=== PATIENT | female | born 1950 | race Caucasian/White ===

== ENCOUNTER → 2022-05-14 | Outpatient (CLI) | payer MEDICARE, OTHER ==
--- NOTE | 2022-05-14 16:34 | Diagnostic Imaging Report ---
INDICATION: Left knee pain. FINDINGS: 4 views. Standing views show zigk-yk-jrhw appearance in the medial compartment with marked hypertrophic changes. There is mild narrowing of the lateral compartment. The patellofemoral joint is in good alignment with considerable hypertrophic change. Trochlea appears normal. No cortical fractures are seen. No loose bodies are identified. IMPRESSION: Advanced arthritic changes noted throughout the knee. Dictated by: Dictated on workstation # [id number]
== END ==
LOC: ORTHO 10:44
PROVIDERS: ATTEND Orthopaedic Surgery
DX: M17.12 Unilateral primary osteoarthritis, left knee (principal)
CPT/HCPCS: 73564; G0463; 99213

== ENCOUNTER 2022-05-27 05:31 | Outpatient (CLI) | payer MEDICARE ==
[~2022-05-27] VITALS: Ht 172.7 cm; Wt 90.0 kg
[2022-05-30] MEDS ORDERED: LATA7.5D OP (12:04)
[2022-05-30] MEDS ORDERED: MAGN400C PO (12:04)
[2022-05-30] MEDS ORDERED: LISI1TAB46 PO (12:04)
[2022-05-30] MEDS ORDERED: GLIM2TAB4 PO (12:04)
[2022-05-30] MEDS ORDERED: MECO10005 PO (12:04)
[2022-05-30] MEDS ORDERED: AMLO-250 PO (12:04)
[2022-05-30] MEDS ORDERED: BIOT10005 PO (12:04)
[2022-05-30] MEDS ORDERED: OMEP20CA18 PO (12:04)
[2022-05-30] MEDS ORDERED: CALC1CAP5 PO (12:04)
[2022-05-30] MEDS ORDERED: METF-398 PO (12:04)
== END 2022-05-30 12:19 | disposition home or self-care (01) ==
LOC: PREOP 05:31
PROVIDERS: ATTEND Orthopaedic Surgery
DX: Z01.818 Encounter for other preprocedural examination (principal)

== ENCOUNTER 2022-06-03 05:56 | Day surgery (SDC) | payer MEDICARE ==
[2022-06-03] VITALS (12 sets, daily range): BP systolic 127–145; BP diastolic 56–72
[~2022-06-03] VITALS: Ht 172.7 cm; Wt 90.0 kg
[~2022-06-03 05:56] MED LIST: AMLO-250 PO; BIOT10005 PO; CALC1CAP5 PO; GLIM2TAB4 PO; LATA7.5D OP; LISI1TAB46 PO; MAGN400C PO; MECO10005 PO; METF-398 PO; OMEP20CA18 PO
[2022-06-03] MEDS ORDERED: CLINDAMYCIN 600 MG/50 ML IVPB 50 ML IV ONE (06:30)
[2022-06-03] MEDS: LACTATED RINGERS 1,000 ML IV PRN ×2 (06:33→08:10)
[2022-06-03] MEDS ORDERED: TRANEXAMIC ACID 3,000 MG/150 ML NS IRRIGATION IR ONE ×2 (06:45)
[2022-06-03] MEDS ORDERED: ONDANSETRON 4 MG/2 ML (SDV) Z0FRAN ONE (06:52)
[2022-06-03] MEDS ORDERED: GLYCOPYRROLATE 0.2 MG/ML (ROBINUL) 2 ML VIAL ONE (06:52)
[2022-06-03] MEDS ORDERED: ROCURONIUM 10 MG/ML 5 ML SYRINGE IV ONE ×2 (06:52→07:09)
[2022-06-03] MEDS ORDERED: fentaNYL INJ 100 MCG/2 ML AMP ONE (06:52)
[2022-06-03] MEDS ORDERED: LIDOCAINE PF 2% 5 ML (XYLOCAINE) VIAL ONE (06:52)
[2022-06-03] MEDS ORDERED: proPOfol 200 MG/20 ML (DIPRIVAN) VIAL IV ONE (06:52)
[2022-06-03] MEDS ORDERED: MIDAZOLAM 2 MG/2 ML (VERSED) VIAL ONE (07:14)
[2022-06-03] MEDS ORDERED: ROPIVACAINE 5MG/ML 30ML VIAL ONE (07:15)
--- NOTE | 2022-06-03 07:21 | Progress Note-Pre Operative ---
Pre-Operative Progress Note Date of Available H&P: May 14, 2022 Date H&P Reviewed: Jun 03, 2022 Time H&P Reviewed: 07:15 History & Physical: H&P Reviewed, Patient Examed, No changes noted Pre-Operative Diagnosis: Left Knee Primary Osteoarthritis ROBERTO REZA MD Jun 03, 2022 07:21
[2022-06-03] MEDS ORDERED: HYDROmorphone 2 MG/ML VIAL (DILAUDID) ONE (08:13)
[2022-06-03] MEDS ORDERED: NEOSTIGMINE (BLOXIVERZ ) 1 MG/1ML 10 ML VIAL ONE (09:40)
[2022-06-03] MEDS ORDERED: SEVOFLURANE (ULTANE) 15 ML INHAL SOLN ONE (09:45)
--- NOTE | 2022-06-03 09:58 | Operative Report - Ortho ---
Operative Report Surgeon (s)/Furnace Combination Analyst (s) Surgeon ROBERTO REZA MD Furnace Combination Analyst n/a Pre-Operative Diagnosis Left Knee Primary Osteoarthritis Post-Operative Diagnosis same Operative Report Date of Procedure: Jun 03, 2022 Name of Procedure Performed: Left Total Knee Arthroplasty Description & Findings After obtaining informed consent and marking the patient in the preoperative holding area, the patient did receive IV antibiotics. Patient was taken to the operating room and anesthesia was induced. Surgical timeout was taken. The left lower extremity was prepped and draped in the usual sterile fashion. Incision was made and carried down to fascia. Arthrotomy was performed on the medial side of the patella. Patella was retracted laterally and knee was flexed. Found to have circumferential osteophtye around the distal femur as well as exposed bone in the medial compartment. Hole was made in the distal femur for the intramedullary distal femoral cutting guide. Resection was made then the femur was sized as a 4. 4-in-1 block for a size [address]. Anterior cut was made and there was no notch. Posterior cut was made followed by the chamfers. Box cut was performed. Lug holes were drilled. Attention was turned to the tibial side, extramedullary tibial guide was put into place and aligned with the tibial crest. It was set to take 2 mm off of the affected lateral side. Drop deloris was used to confirm alignment. Resection was made and was parallel to the joint line. Tibial bone block was removed. Lamina hydraulic jack operator was put into place and the menisci and posterior osteophytes were removed. The knee was trialed with a size 4 femur and a size 4 tibia with an 11 mm poly trial. It was found to come out to full extension and flexed beyond 120 degrees. It was stable to varus and valgus stress throughout its range of motion. This was accepted. Knee was brought out into extension and the patella was measured at less than 20 mm of thickness. Osteophytes were removed from around the perimeter of the patella. Trial implants were removed. Tibial tray was pinned and punched. The cut bone surfaces were lavaged with pulsatile normal saline. Implants were opened and assembled on the back table. Cement was mixed. Cement was applied to the cut bone surface as well as the implant surface. A size 4 tibial component was impacted into placed and excess cement was removed using a Redkey. A size 4 femoral component was impacted into place and excess cement was removed using a Redkey. Tibial tray was lavaged with saline. An 11 mm thick polyethylene component was locked into placed and the locking mechanism was checked. Knee was brought into extension. The knee was irrigated with normal saline. Irrigation was removed and tranexamic acid was placed. Once the cement had set, the knee was once again trialed; found to come to full extension, flexed beyond 120 degrees, and was stable to varus and valgus stress. Further tranexamic acid was applied for hemostasis. Tourniquet was dropped and electrocautery was used for further hemostasis. Fascial layer was closed with #2 Stratafix. The subcutaneous layer was closed with 2-0 Vicryl. The skin was closed with jaylen. Wound was dressed with xeroform, 4x4s, ABD, webril, and SARA wrap. Patient tolerated the procedure well and was stable to the recovery room. Anesthesia Type General plus regional Estimated Blood Loss 150 mL Specimen(s) collected/removed None ROBERTO REZA MD Jun 03, 2022 09:58
[2022-06-03] MEDS ORDERED: MILK OF MAGNESIA 400 MG/5 ML 30 ML UDC PO PRN (10:00)
[2022-06-03] MEDS ORDERED: BISACODYL 5 MG (DULCOLAX) TABLET PO PRN (10:00)
[2022-06-03] MEDS ORDERED: ONDANSETRON 4 MG/2 ML (SDV) Z0FRAN IV PRN (10:00)
[2022-06-03] MEDS ORDERED: morphine INJ 10 MG/ML 1ML (SYR OR VIAL) ONE (10:14)
[2022-06-03] MEDS ORDERED: HYDROmorphone 2 MG/ML VIAL (DILAUDID) IV ONE (10:15)
[2022-06-03] MEDS ORDERED: ONDANSETRON 4 MG/2 ML (SDV) Z0FRAN IVP PRN (10:15)
[2022-06-03] MEDS ORDERED: morphine INJ 10 MG/ML 1ML (SYR OR VIAL) IVP ONE (10:15)
--- NOTE | 2022-06-03 11:02 | Diagnostic Imaging Report ---
CLINICAL INDICATION: Preop knee surgery. EXAM: X-ray of the left knee, AP and crosstable lateral views. COMPARISON: X-ray of the left knee dated 05/14/2022. FINDINGS: There are interval postop changes with placement of a left total knee arthroplasty with the components in good position. Anterior knee skin jaylen and a compressive device are seen anteriorly. There is air involving the left knee joint space and soft tissue. IMPRESSION: Left total knee arthroplasty with the components in good position. There is no unexpected radiodense foreign object. Dictated by: Dictated on workstation # [id number]
[2022-06-03] MEDS ORDERED: morphine INJ 4 MG/ML 1 ML (VIAL/SYRINGE) IVP PRN (12:00)
[2022-06-03] MEDS: NS IV 1000 ML 1,000 ML IV SCH ×2 (12:30→21:49)
[2022-06-03] MEDS: GLIMEPIRIDE 2 MG (AMARYL) TAB PO SCH ×2 (13:51→20:49)
[2022-06-03] MEDS: CLINDAMYCIN 600 MG/50 ML IVPB 50 ML IV SCH ×2 (13:51→21:49)
--- NOTE | 2022-06-03 14:20 | Physical Therapy Evaluation ---
PT Evaluation-General Medical Diagnosis Admission Date June 03, 2022 Medical Diagnosis: left TKR Onset Date: Jun 03, 2022 Therapy Diagnosis Therapy Diagnosis: impaired mobility/weakness Precautions Precautions/Isolations: Fall Prevention, Standard Precautions Weight Bear Status Right Lower Extremity: Right Full Weight Bearing Left Lower Extremity: Left Weight Bearing/Tolerated Referral Physician: Tommie Reason for Referral: Evaluation/Treatment Medical History Pertinent Medical History: Arthritis, DM, HTN Current History s/p elective left TKR Reviewed History: Yes Social History Home: Single Level Current Living Status: Alone Entry Into Home: Stairs With Railing PT Steps Into Home: 3 Prior Prior Level of Function SCALE: Activities may be completed with or without assistive devices. 2-Egnruxvuyr-apiaksm completes the activity by him/herself with no assistance from a helper. 5-Set-up or Clean-up Assistance-helper sets up or cleans up; patient completes activity. [place] assists only prior to or following the activity. 4-Supervision or Touching Assistance-helper provides verbal cues and/or touching/steadying and/or contact guard assistance as patient completes activity. Assistance may be provided throughout the activity or intermittently. 3-Partial/Moderate Assistance-helper does LESS THAN HALF the effort. [place] lifts, holds or supports trunk or limbs, but provides less than half the effort. 2-Substantial/Maximal Assistance-helper does MORE THAN HALF the effort. [place] lifts or holds trunk or limbs and provides more than half the effort. 9-Tkmcsrrgz-esdqud does ALL the effort. Patient does none of the effort to complete the activity. Or, the assistance of 2 or more helpers is required for the patient to complete the activity. If activity was not attempted, code reason: 7-Patient Refused. 9-Not Applicable-not attempted and the patient did not perform the activity before the current illness, exacerbation or injury. 10-Not Attempted due to Environmental Limitations-(lack of equipment, weather restraints, etc.). 88-Not Attempted due to Medical Conditions or Safety Concerns. Bed Mobility: 6 Transfers (B,C,W/C): 6 Gait: 6 Stairs: 6 Indoor Mobility (Ambulation): Independent Stairs: Independent Prior Devices Use: Walker (PRN) PT Evaluation-Current Subjective Patient agrees to PT. Pain Numeric Pain Scale: 5-Moderate Pain Location: Left Location Body Site: Knee Pain Description: Acute Objective Patient Orientation: Normal For Age Attachments: Lind Catheter, Polar Pack, IV ROM/Strength ROM Lower Extremities left knee flexion 70 degrees AROM/0 degrees extension right LE WFL Strength Lower Extremities left LE 3+/5 grossly/right LE 4+/5 grossly Integumentary/Posture Bowel Incontinence: No Bladder Incontinence: Lind Cath Posture slight trunk flexed posture Neuromuscular (Tone, Coordination, Reflexes) grossly intact Sensory Vision: Functional Hearing: Functional Transfers Sit to Lying (QC): 6 Lying to Sitting/Side of Bed(Q: 6 Sit to Stand (QC): 4 Gait Mode of Locomotion: Walk Anticipated Mode of Locomotion: Walk Walk 10 feet (QC): 4 Walk 50 ft with 2 Turns(QC): 88 Walk 150 ft (QC): 88 Distance: 10' Gait Assistive Device: FWW Comments/Gait Description slightly antalgic/functional gait sequence Balance Sitting Static: Normal Sitting Dynamic: Normal Standing Static: Normal Standing Dynamic: Normal Treatment CPM/PADS 0-60 degrees left LE in place with polar pack Assessment/Needs 72 y.o. female, will benefit from skilled PT to address functional strength and mobility to improve current LOF to safely return to home at maximum LOF. Rehab Potential: Fair PT Chcf Goals Chcf Goals PT Chcf Goals Time Frame: Jun 08, 2022 Roll Left & Right (QC): 6 Sit to Lying (QC): 6 Lying-Sitting on Side/Bed(QC): 6 Sit to Stand (QC): 6 Chair/Gjt-hs-Cgtqz Xfer(QC): 6 Toilet Transfer (QC): 6 Walk 10 feet (QC): 6 Walk 50ft with 2 Turns (QC): 6 Walk 150 ft (QC): 6 1 Step (curb) (QC): 6 4 Steps (QC): 6 PT Plan Problem List Problem List: Activity Tolerance, Functional Strength, Safety, Balance, Gait, Transfer, Bed Mobility, ROM Treatment/Plan Treatment Plan: Continue Plan of Care Treatment Plan: Bed Mobility, Education, Functional Activity Brien, Functional Strength, Gait, Safety, Therapeutic Exercise, Transfers Treatment Duration: Jun 08, 2022 Frequency: 11 times per week Estimated Hrs Per Day: .5 hour per day Patient and/or Family Agrees t: Yes Time/GCodes Time In: 1300 Time Out: 1338 Total Billed Treatment Time: 38 Total Billed Treatment 1 visit EVModC 20 min FA 18 min CPM/PADS KI,ANDREAS PT Jun 03, 2022 14:20
[2022-06-03] MEDS ORDERED: LISI-593 PO (16:01)
[2022-06-03] MEDS ORDERED: GLIM4TAB5 PO (16:01)
[2022-06-03] MEDS ORDERED: LATA2.5D19 OU (16:01)
[2022-06-03] MEDS ORDERED: MAGN250T35 PO (16:01)
[2022-06-03] MEDS: ASPIRIN E.C. 81 MG (ECOTRIN) TAB PO SCH (17:55)
[2022-06-03] MEDS: DOCUSATE SODIUM 100 MG (COLACE) CAP PO SCH (20:49)
[2022-06-03] MEDS: inSUlin ASPART (NovoLOG) 1 UNIT/0.01 ML (CHARGE PER UNIT) SC SCH (20:49)
[2022-06-03] MEDS: CELECOXIB 100 MG (CeleBREX) CAP PO SCH (20:49)
[2022-06-04] VITALS (7 sets, daily range): BP systolic 133–147; BP diastolic 60–73
[2022-06-04] MEDS: inSUlin ASPART (NovoLOG) 1 UNIT/0.01 ML (CHARGE PER UNIT) SC SCH ×4 (05:43→21:10)
[2022-06-04 06:10] LABS: HEMOGLOBIN 11.3 g/dL (11.5-16.0)
[2022-06-04] MEDS: ASPIRIN E.C. 81 MG (ECOTRIN) TAB PO SCH ×2 (08:22→16:54)
[2022-06-04] MEDS: NS IV 1000 ML 1,000 ML IV SCH (08:22)
[2022-06-04] MEDS: CELECOXIB 100 MG (CeleBREX) CAP PO SCH ×2 (08:22→20:28)
[2022-06-04] MEDS: DOCUSATE SODIUM 100 MG (COLACE) CAP PO SCH ×2 (08:23→20:28)
[2022-06-04] MEDS: GLIMEPIRIDE 2 MG (AMARYL) TAB PO SCH ×3 (08:23→20:28)
[2022-06-04] MEDS: PANTOPRAZOLE 20 MG TABLET (PROTONIX) PO SCH (08:23)
[2022-06-04] MEDS ORDERED: OMEPRAZOLE 20 MG (PriLOSEC) CAP NON-FORMULARY PO SCH (09:00)
--- NOTE | 2022-06-04 09:50 | Physical Therapy Daily Note ---
PT Daily Note-Current Subjective Patient agrees to PT. Pain Numeric Pain Scale: 8 Location: Left Location Body Site: Knee Pain Description: Acute Section J - Health Conditions 1. Rarely or not at all 2. Occasionally 3. Frequently 4. Almost constantly 8. Unable to answer Pain Effect on Sleep: 4 Pain Interference with Therapy: 3 Pain Interference w/Day-to-Day: 3 Mental Status Patient Orientation: Normal For Age Attachments: IV Transfers SCALE: Activities may be completed with or without assistive devices. 0-Cszjxxokax-crabulo completes the activity by him/herself with no assistance from a helper. 5-Set-up or Clean-up Assistance-helper sets up or cleans up; patient completes activity. [place] assists only prior to or following the activity. 4-Supervision or Touching Assistance-helper provides verbal cues and/or touching/steadying and/or contact guard assistance as patient completes activity. Assistance may be provided throughout the activity or intermittently. 3-Partial/Moderate Assistance-helper does LESS THAN HALF the effort. [place] lifts, holds or supports trunk or limbs, but provides less than half the effort. 2-Substantial/Maximal Assistance-helper does MORE THAN HALF the effort. [place] lifts or holds trunk or limbs and provides more than half the effort. 7-Osnarfoub-yrmbta does ALL the effort. Patient does none of the effort to complete the activity. Or, the assistance of 2 or more helpers is required for the patient to complete the activity. If activity was not attempted, code reason: 7-Patient Refused. 9-Not Applicable-not attempted and the patient did not perform the activity before the current illness, exacerbation or injury. 10-Not Attempted due to Environmental Limitations-(lack of equipment, weather restraints, etc.). 88-Not Attempted due to Medical Conditions or Safety Concerns. Lying to Sitting/Side of Bed(Q: 6 Sit to Stand (QC): 4 Chair/Ypp-de-Zqgfa Xfer(QC): 4 Toilet Transfer (QC): 4 Weight Bearing Right Lower Extremity: Right Full Weight Bearing Left Lower Extremity: Left Weight Bearing/Tolerated Gait Training Distance: 250' Walk 10 feet (QC): 4 Walk 50 ft with 2 Turns(QC): 4 Walk 150 ft (QC): 4 Gait Assistive Device: FWW flexed trunk and bilateral knee posture with VC's to correct/very slow reciprocal pattern Exercises Supine Ex: Ankle pumps, Quad Set, Heel Slides, Straight leg raise Supine Reps: 15 Seated Therapy Exercises: Long arc quads Seated Reps: 15 Assessment Patient requires time to complete all functional tasks. Patient's AROM 0-90 in recliner left knee. Patient to return to home with home health this week. Patient progressing with treatment plan. PT Longterm Goals Longterm Goals PT Registered Account Administrator Goals Time Frame: Jun 08, 2022 Roll Left & Right (QC): 6 Sit to Lying (QC): 6 Lying-Sitting on Side/Bed(QC): 6 Sit to Stand (QC): 6 Chair/Ero-wp-Uuoqc Xfer(QC): 6 Toilet Transfer (QC): 6 Walk 10 feet (QC): 6 Walk 50ft with 2 Turns (QC): 6 Walk 150 ft (QC): 6 1 Step (curb) (QC): 6 4 Steps (QC): 6 PT Plan Treatment/Plan Treatment Plan: Continue Plan of Care Treatment Plan: Bed Mobility, Education, Functional Activity Brien, Functional Strength, Gait, Safety, Therapeutic Exercise, Transfers Treatment Duration: Jun 08, 2022 Frequency: 11 times per week Estimated Hrs Per Day: .5 hour per day Patient and/or Family Agrees t: Yes Time/GCodes Time In: 802 Time Out: 845 Total Billed Treatment Time: 43 Total Billed Treatment 1 visit EX 20 min GT x 2 23 min ANDREAS EMERSON PT Jun 04, 2022 09:50
--- NOTE | 2022-06-04 10:08 | Anesthesia-General Post-Op ---
General Patient Condition Mental Status/LOC: Same as Preop Cardiovascular: Satisfactory Nausea/Vomiting: Absent Respiratory: Satisfactory Pain: Controlled Complications: Absent Post Op Complications Complications None Follow Up Care/Instructions Patient Instructions None needed. Anesthesia/Patient Condition Patient Condition Patient is doing well, no complaints, stable vital signs, no apparent adverse anesthesia problems. No complications reported per nursing. ROBERTO FIGUEROA CRNA Jun 04, 2022 10:08
--- NOTE | 2022-06-04 11:02 | Progress Note - Ortho ---
Progress Note Subjective Date of Exam 06/04/22 Chief Complaint POD #1 L TKA HPI/Events since last exam having difficulty with pain, concerned about discharge arrangements Review of Systems - Allergies: Coded Allergies: Penicillins (Unverified Allergy, Severe, Hives, 05/30/22) codeine (Unverified Allergy, Severe, Hives; PT rec'd hydromorphone, 06/03/22) adhesive tape (Unverified Allergy, Intermediate, Rash, 05/30/22) caffeine (Unverified Allergy, Unknown, 05/30/22) iodine (Unverified Allergy, Unknown, 05/30/22) Home Meds Reported Medications Magnesium Oxide (Magnesium Oxide) 250 Mg Tablet, 250 MG PO BID, TAB 06/03/22 Lisinopril/Hydrochlorothiazide (Zestoretic 20-25 mg Tablet) 20 Mg-25 Mg Tablet, 1 EACH PO DAILY, TAB 06/03/22 Latanoprost (Xalatan) 0.005 % Drops, 1 DROP OU HS, DROPS 06/03/22 Glimepiride (Glimepiride) 4 Mg Tablet, 2 MG PO TID, TAB TAKES OF A 4MG 06/03/22 Omeprazole (Omeprazole) 20 Mg Capsule.dr, 20 MG PO DAILY, CAP 05/30/22 Metformin HCl (Metformin HCl) 850 Mg Tablet, 850 MG PO TIDPC, TAB 05/30/22 Calcium Carbonate/Vitamin D3 (Calcium 600+D Softgel) 600 Mg Calcium-5 Mcg (200 Unit) Capsule, 1 EACH PO DAILY, CAP 05/30/22 Mecobalamin (B12 Active) 1,000 Mcg Tab.chew, 1000 MCG PO DAILY, TAB 05/30/22 Biotin (Biotin) 10,000 Mcg Capsule, 00953 MCG PO DAILY, CAP 05/30/22 Amlodipine Besylate (Amlodipine Besylate) 5 Mg Tablet, 5 MG PO DAILY, TAB 05/30/22 Discontinued Reported Medications Magnesium Oxide (Magnesium) 400 Mg Magnesium Capsule, 400 MG PO DAILY, CAP 05/30/22 Latanoprost/Pf (Latanoprost 0.005% Eye Drop) Unknown Strength Drops, OP, DROPS 05/30/22 Glimepiride (Glimepiride) 2 Mg Tablet, 2 MG PO TID, TAB 05/30/22 Objective Exam L Knee: Dressing C/D/I, +DF of ankle, no s/s of DVT Vital Signs Vital Signs Date Time Temp Pulse Resp B/P (MAP) Pulse Ox O2 Delivery O2 Flow Rate FiO2 06/04/22 09:00 Room Air 06/04/22 07:36 37.0 79 18 140/63 (88) 95 Room Air 06/04/22 04:26 36.7 91 20 147/70 (95) 93 Room Air 06/04/22 00:08 36.9 85 19 137/62 (87) 97 Room Air 06/03/22 21:03 Room Air 06/03/22 20:32 36.8 73 19 144/65 (91) 97 Room Air 06/03/22 16:08 37.0 87 18 133/63 (86) 95 Room Air 06/03/22 14:43 Room Air 06/03/22 11:47 35.9 82 16 143/65 (91) 96 Room Air 06/03/22 11:46 35.9 82 16 143/65 (91) 96 Room Air I & O 06/04/22 07:00 Intake Total 3550 ml Output Total 3800 ml Balance -250 ml Lab Results Laboratory Tests 06/03/22 16:18: Glucometer 236H 06/03/22 20:39: Glucometer 223H 06/04/22 05:20: Hemoglobin 11.3L, Hematocrit 34L 06/04/22 05:24: Glucometer 201H Microbiology 06/03/22 MRSA Screen - Final, Complete MRSA not isolated Imaging 2 postop views of the left knee dated 06/03/22 were reviewed from PACS and demonstrated components to be in good position without complication Assessment and Plan Assessment L Knee OA s/p L TKA Problem List L Knee OA s/p L TKA Plan PT/OT DVT Prophylaxis Home with home health versus some form of extended care Final Diagonsis L Knee OA s/p L TKA Level of the visit: Level 3 (postop global) ROBERTO REZA MD Jun 04, 2022 11:02
--- NOTE | 2022-06-04 13:33 | Physical Therapy Daily Note ---
PT Daily Note-Current Subjective Patient agrees to PT. Pain Numeric Pain Scale: 5-Moderate Pain Location: Left Location Body Site: Knee Pain Description: Acute Section J - Health Conditions 1. Rarely or not at all 2. Occasionally 3. Frequently 4. Almost constantly 8. Unable to answer Pain Effect on Sleep: 2 Pain Interference with Therapy: 1 Pain Interference w/Day-to-Day: 2 Mental Status Patient Orientation: Normal For Age Attachments: IV Transfers SCALE: Activities may be completed with or without assistive devices. 9-Wooowklbox-inoromh completes the activity by him/herself with no assistance from a helper. 5-Set-up or Clean-up Assistance-helper sets up or cleans up; patient completes activity. [place] assists only prior to or following the activity. 4-Supervision or Touching Assistance-helper provides verbal cues and/or t ouching/steadying and/or contact guard assistance as patient completes activity. Assistance may be provided throughout the activity or intermittently. 3-Partial/Moderate Assistance-helper does LESS THAN HALF the effort. [place] lifts, holds or supports trunk or limbs, but provides less than half the effort. 2-Substantial/Maximal Assistance-helper does MORE THAN HALF the effort. [place] lifts or holds trunk or limbs and provides more than half the effort. 7-Dpyuxnjfc-iefcgy does ALL the effort. Patient does none of the effort to complete the activity. Or, the assistance of 2 or more helpers is required for the patient to complete the activity. If activity was not attempted, code reason: 7-Patient Refused. 9-Not Applicable-not attempted and the patient did not perform the activity before the current illness, exacerbation or injury. 10-Not Attempted due to Environmental Limitations-(lack of equipment, weather restraints, etc.). 88-Not Attempted due to Medical Conditions or Safety Concerns. Sit to Stand (QC): 5 Weight Bearing Right Lower Extremity: Right Full Weight Bearing Left Lower Extremity: Left Weight Bearing/Tolerated Gait Training Distance: 250' Walk 10 feet (QC): 4 Walk 50 ft with 2 Turns(QC): 4 Walk 150 ft (QC): 4 Gait Assistive Device: FWW trunk and bilateral knee flexed posture with VC's for posture/reciprocal pattern Exercises Seated Therapy Exercises: Ankle pumps, Long arc quads Seated Reps: 15 Assessment Patient remains up in recliner for lunch. Patient progressing with treatment plan. Patient left knee flexion in chair is 90 degrees AROM. PT Half-Way Goals Ground Support Equipment Assembler Goals PT Ground Support Equipment Assembler Goals Time Frame: Jun 08, 2022 Roll Left & Right (QC): 6 Sit to Lying (QC): 6 Lying-Sitting on Side/Bed(QC): 6 Sit to Stand (QC): 6 Chair/Kln-wi-Gwivy Xfer(QC): 6 Toilet Transfer (QC): 6 Walk 10 feet (QC): 6 Walk 50ft with 2 Turns (QC): 6 Walk 150 ft (QC): 6 1 Step (curb) (QC): 6 4 Steps (QC): 6 PT Plan Treatment/Plan Treatment Plan: Continue Plan of Care Treatment Plan: Bed Mobility, Education, Functional Activity Brien, Functional Strength, Gait, Safety, Therapeutic Exercise, Transfers Treatment Duration: Jun 08, 2022 Frequency: 11 times per week Estimated Hrs Per Day: .5 hour per day Patient and/or Family Agrees t: Yes Time/GCodes Time In: 1240 Time Out: 1256 Total Billed Treatment Time: 16 Total Billed Treatment 1 visit FA 16 min ANDREAS EMERSON PT Jun 04, 2022 13:33
--- NOTE | 2022-06-04 13:39 | Occupational Therapy Eval ---
OT Evaluation-General/PLF Medical Diagnosis Admission Date 06/03/2022 Medical Diagnosis: left TKR Onset Date: Jun 03, 2022 Therapy Diagnosis Therapy Diagnosis: N/a Precautions Precautions/Isolations: Fall Prevention, Standard Precautions Referral Physician: Tommie Referral Reason: Evaluation/Treatment Medical History Pertinent Medical History: Arthritis, DM, HTN Current History Pt received a L TKR and is post op day 1. Pt lives alone in a 2-story home. She stated that she is able to stay on ground level and does not need to go up to the second floor. She has family close by in case she needs anything. Prior to surgery she was very active, working out 5 days a week and was independent with all ADLs/IADLs. She did not use any AD. Reviewed History: Yes Social History Home: Multilevel Current Living Status: Alone Entry Into Home: Stairs With Railing Steps Into Home: 3 ADL-Prior Level of Function SCALE: Activities may be completed with or without assistive devices. 3-Cpvampxzzf-pwaeacm completes the activity by him/herself with no assistance from a helper. 5-Set-up or Clean-up Assistance-helper sets up or cleans up; patient completes activity. [place] assists only prior to or following the activity. 4-Supervision or Touching Assistance-helper provides verbal cues and/or touching/steadying and/or contact guard assistance as patient completes activi ty. Assistance may be provided throughout the activity or intermittently. 3-Partial/Moderate Assistance-helper does LESS THAN HALF the effort. [place] lifts, holds or supports trunk or limbs, but provides less than half the effort. 2-Substantial/Maximal Assistance-helper does MORE THAN HALF the effort. [place] lifts or holds trunk or limbs and provides more than half the effort. 1-Nzmrmaeym-uymkie does ALL the effort. Patient does none of the effort to complete the activity. Or, the assistance of 2 or more helpers is required for the patient to complete the activity. If activity was not attempted, code reason: 7-Patient Refused. 9-Not Applicable-not attempted and the patient did not perform the activity before the current illness, exacerbation or injury. 10-Not Attempted due to Environmental Limitations-(lack of equipment, weather restraints, etc.). 88-Not Attempted due to Medical Conditions or Safety Concerns. Self Care: Independent Functional Cognition: Independent DME/Equipment: Bath Bench, Grab Bars, Tub/Shower Drive Self: Yes OT Current Status Subjective Pt sitting in bed upon arrival. She agreed to a therapy eval. Appearance Pt left lying in bed with all needs within reach. CPM was donned and turned on. Mental Status/Objective Patient Orientation: Person, Place, Time, Situation Attachments: IV Current Glasses/Contacts: Yes Hearing Aids: No Dentures/Partials: No Hand Dominance: Right Upper Extremity ROM WNL Upper Extremity Strength 5/5 at shoulders ADL-Treatment Oral Hygiene (QC): 6 (per clinical judgment) Shower/Bathe Self (QC): 5 (per clinical judgment; will improve quickly upon subsided pain) Lower Body Dressing (QC): 6 (per pt report) On/Off Footwear (QC): 6 Pt shows good seated and standing dynamic balance. Pt doffed/donned R sock with independence. Pt needed assist for L sock, but with decreased pain and better ROM, pt should reach independence with L LE quickly. Sit<>stand transfer: SBA. She shows no deficits and does not have any concerns with self-care tasks. She does not require skilled OT at this time. All concerns and questions answered in evaluation about home layout and knee precautions. Education OT Patient Education: Correct positioning, Modified ADL techniques, Progress toward Goal/Update tx plan, Purpose of tx/functional activities, Reviewed precautions, Rehab process, Safety issues Teaching Recipient: Patient Teaching Methods: Demonstration, Discussion Response to Teaching: Verbalize Understanding, Return Demonstration OT Glass Mechanic Goals [facility] Goals 1=Demonstrate adherence to instructed precautions during ADL tasks. 2=Patient will verbalize/demonstrate understanding of assistive devices/modifications for ADL. 3=Patient will improve strength/tolerance for activity to enable patient to perform ADL's. OT Education/Plan Problem List/Assessment Assessment: No Skilled OT Needs ID'd Discharge Recommendations Plan/Recommendations: Discontinue OT Therapy Discharge Recommendati: Home & Family Treatment Plan/Plan of Care Treatment,Training & Education: Yes Patient would benefit from OT for education, treatment and training to promote independence in ADL's, mobility, safety and/or upper extremity function for ADL's. Plan of Care: ADL Retraining, Functional Mobility Treatment Duration: Jun 04, 2022 Frequency: 1 time per week Estimated Hrs Per Day: .25 hour per day Agreement: Yes Rehab Potential: Fair Time/GCodes Start Time: 13:15 Stop Time: 13:31 Total Time Billed (hr/min): 16 Billed Treatment Time 1 visit Mervat Posada OT Jun 04, 2022 13:39
[2022-06-05 03:43] VITALS: BP 126/73
[2022-06-05] MEDS: inSUlin ASPART (NovoLOG) 1 UNIT/0.01 ML (CHARGE PER UNIT) SC SCH ×5 (05:25→20:45)
[2022-06-05 05:45] LABS: HEMOGLOBIN 10.2 g/dL (11.5-16.0)
[2022-06-05 07:40] VITALS: BP 138/74
[2022-06-05] MEDS: GLIMEPIRIDE 2 MG (AMARYL) TAB PO SCH ×3 (08:19→20:44)
[2022-06-05] MEDS: CELECOXIB 100 MG (CeleBREX) CAP PO SCH ×2 (08:19→20:44)
[2022-06-05] MEDS: DOCUSATE SODIUM 100 MG (COLACE) CAP PO SCH ×2 (08:19→20:44)
[2022-06-05] MEDS: PANTOPRAZOLE 20 MG TABLET (PROTONIX) PO SCH (08:19)
[2022-06-05] MEDS: ASPIRIN E.C. 81 MG (ECOTRIN) TAB PO SCH ×2 (08:19→17:15)
--- NOTE | 2022-06-05 08:53 | Physical Therapy Daily Note ---
PT Daily Note-Current Subjective Patient in recliner pre tx, agrees to PT, has 5/10 pain in left knee. Pain Section J - Health Conditions 1. Rarely or not at all 2. Occasionally 3. Frequently 4. Almost constantly 8. Unable to answer Pain Effect on Sleep: 2 Pain Interference with Therapy: 1 Pain Interference w/Day-to-Day: 2 Appearance Patient in recliner post tx with nurse call, phone, tray, all needs met. Mental Status Patient Orientation: Person, Place, Situation Transfers SCALE: Activities may be completed with or without assistive devices. 7-Swhwfhjstl-amcvusj completes the activity by him/herself with no assistance from a helper. 5-Set-up or Clean-up Assistance-helper sets up or cleans up; patient completes activity. [place] assists only prior to or following the activity. 4-Supervision or Touching Assistance-helper provides verbal cues and/or touching/steadying and/or contact guard assistance as patient completes acti vity. Assistance may be provided throughout the activity or intermittently. 3-Partial/Moderate Assistance-helper does LESS THAN HALF the effort. [place] lifts, holds or supports trunk or limbs, but provides less than half the effort. 2-Substantial/Maximal Assistance-helper does MORE THAN HALF the effort. [place] lifts or holds trunk or limbs and provides more than half the effort. 6-Vipturooz-invefv does ALL the effort. Patient does none of the effort to complete the activity. Or, the assistance of 2 or more helpers is required for the patient to complete the activity. If activity was not attempted, code reason: 7-Patient Refused. 9-Not Applicable-not attempted and the patient did not perform the activity before the current illness, exacerbation or injury. 10-Not Attempted due to Environmental Limitations-(lack of equipment, weather restraints, etc.). 88-Not Attempted due to Medical Conditions or Safety Concerns. Sit to Stand (QC): 4 Chair/Hdb-hm-Wlsht Xfer(QC): 4 SBA Weight Bearing Right Lower Extremity: Right Full Weight Bearing Left Lower Extremity: Left Weight Bearing/Tolerated Gait Training Distance: 250' Walk 10 feet (QC): 4 Walk 50 ft with 2 Turns(QC): 4 Walk 150 ft (QC): 4 Gait Persons Needed: 1 Gait Assistive Device: FWW SBA, slow, antalgic, decreased left knee flexion, fairly severe trendelenburg gait Exercises Supine Ex: Quad Set Supine Reps: 20 (done in recliner with legs elevated) Seated Therapy Exercises: Ankle pumps, Long arc quads Seated Reps: 20 Treatments transfers, ambulation, LE ROM Assessment Current Status: Fair Progress improving endurance PT Assisted Goals Assisted Goals PT Assisted Goals Time Frame: Jun 08, 2022 Roll Left & Right (QC): 6 Sit to Lying (QC): 6 Lying-Sitting on Side/Bed(QC): 6 Sit to Stand (QC): 6 Chair/Oqt-zb-Srmxp Xfer(QC): 6 Toilet Transfer (QC): 6 Walk 10 feet (QC): 6 Walk 50ft with 2 Turns (QC): 6 Walk 150 ft (QC): 6 1 Step (curb) (QC): 6 4 Steps (QC): 6 PT Plan Problem List Problem List: Activity Tolerance, Functional Strength, Safety, Balance, Gait, Transfer, Bed Mobility, ROM Treatment/Plan Treatment Plan: Continue Plan of Care Treatment Plan: Bed Mobility, Education, Functional Activity Brien, Functional Strength, Gait, Safety, Therapeutic Exercise, Transfers Treatment Duration: Jun 08, 2022 Frequency: 11 times per week Estimated Hrs Per Day: .5 hour per day Patient and/or Family Agrees t: Yes Safety Risks/Education Patient Education: Gait Training, Transfer Techniques, Correct Positioning, Safety Issues Teaching Recipient: Patient Teaching Methods: Demonstration, Discussion Response to Teaching: Reinforcement Needed Time/GCodes Time In: 818 Time Out: 830 Total Billed Treatment Time: 12 Total Billed Treatment 1 visit FA SHARLENE GTZ PT Jun 05, 2022 08:53
--- NOTE | 2022-06-05 09:05 | Progress Note - Ortho ---
Progress Note Subjective Date of Exam 06/05/22 Chief Complaint POD #2 L TKA HPI/Events since last exam continues to have quad soreness, making progress with therapy Review of Systems - Allergies: Coded Allergies: Penicillins (Unverified Allergy, Severe, Hives, 05/30/22) codeine (Unverified Allergy, Severe, Hives; PT rec'd hydromorphone, 06/03/22) adhesive tape (Unverified Allergy, Intermediate, Rash, 05/30/22) caffeine (Unverified Allergy, Unknown, 05/30/22) iodine (Unverified Allergy, Unknown, 05/30/22) Home Meds Reported Medications Magnesium Oxide (Magnesium Oxide) 250 Mg Tablet, 250 MG PO BID, TAB 06/03/22 Lisinopril/Hydrochlorothiazide (Zestoretic 20-25 mg Tablet) 20 Mg-25 Mg Tablet, 1 EACH PO DAILY, TAB 06/03/22 Latanoprost (Xalatan) 0.005 % Drops, 1 DROP OU HS, DROPS 06/03/22 Glimepiride (Glimepiride) 4 Mg Tablet, 2 MG PO TID, TAB TAKES OF A 4MG 06/03/22 Omeprazole (Omeprazole) 20 Mg Capsule.dr, 20 MG PO DAILY, CAP 05/30/22 Metformin HCl (Metformin HCl) 850 Mg Tablet, 850 MG PO TIDPC, TAB 05/30/22 Calcium Carbonate/Vitamin D3 (Calcium 600+D Softgel) 600 Mg Calcium-5 Mcg (200 Unit) Capsule, 1 EACH PO DAILY, CAP 05/30/22 Mecobalamin (B12 Active) 1,000 Mcg Tab.chew, 1000 MCG PO DAILY, TAB 05/30/22 Biotin (Biotin) 10,000 Mcg Capsule, 06027 MCG PO DAILY, CAP 05/30/22 Amlodipine Besylate (Amlodipine Besylate) 5 Mg Tablet, 5 MG PO DAILY, TAB 05/30/22 Discontinued Reported Medications Magnesium Oxide (Magnesium) 400 Mg Magnesium Capsule, 400 MG PO DAILY, CAP 05/30/22 Latanoprost/Pf (Latanoprost 0.005% Eye Drop) Unknown Strength Drops, OP, DROPS 05/30/22 Glimepiride (Glimepiride) 2 Mg Tablet, 2 MG PO TID, TAB 05/30/22 Objective Exam L Knee: Incision C/D/I, +DF of ankle, no s/s of DVT Vital Signs Vital Signs Date Time Temp Pulse Resp B/P (MAP) Pulse Ox O2 Delivery O2 Flow Rate FiO2 06/05/22 07:40 36.8 85 18 138/74 (95) 95 Room Air 06/05/22 03:43 36.6 86 18 126/73 (90) 96 Room Air 06/04/22 23:37 36.5 84 18 143/73 (96) 96 Room Air 06/04/22 21:06 Room Air 06/04/22 19:42 36.5 84 18 133/60 (84) 97 Room Air 06/04/22 15:30 36.3 85 18 140/65 (90) 96 Room Air 06/04/22 11:32 36.8 77 18 143/64 (90) 97 Room Air I & O 06/05/22 07:00 Intake Total 2900 ml Balance 2900 ml Lab Results Laboratory Tests 06/04/22 11:05: Glucometer 177H 06/04/22 16:13: Glucometer 220H 06/04/22 20:35: Glucometer 242H 06/05/22 05:12: Glucometer 166H 06/05/22 05:25: Hemoglobin 10.2L, Hematocrit 31L Microbiology 06/03/22 MRSA Screen - Final, Complete MRSA not isolated Assessment and Plan Assessment Left Knee OA s/p L TKA Problem List Left Knee OA s/p L TKA Plan PT/OT DVT Prophylaxis Home with Home Health Tomorrow Final Diagonsis Left Knee OA s/p L TKA Level of the visit: Level 3 (postop global) ROBERTO REZA MD Jun 05, 2022 09:05
[2022-06-05 11:09] VITALS: BP 133/73
--- NOTE | 2022-06-05 14:10 | Physical Therapy Daily Note ---
PT Daily Note-Current Subjective Patient in recliner pre tx, agrees to PT, has 5/10 pain in left knee. Pain Section J - Health Conditions 1. Rarely or not at all 2. Occasionally 3. Frequently 4. Almost constantly 8. Unable to answer Pain Effect on Sleep: 2 Pain Interference with Therapy: 1 Pain Interference w/Day-to-Day: 2 Appearance Patient in recliner post tx with nurse call, phone, tray, all needs met. Mental Status Patient Orientation: Person, Place, Situation Transfers SCALE: Activities may be completed with or without assistive devices. 2-Qcgsdjmyvp-lwkfcqx completes the activity by him/herself with no assistance from a helper. 5-Set-up or Clean-up Assistance-helper sets up or cleans up; patient completes activity. [place] assists only prior to or following the activity. 4-Supervision or Touching Assistance-helper provides verbal cues and/or touching/steadying and/or contact guard assistance as patient completes acti vity. Assistance may be provided throughout the activity or intermittently. 3-Partial/Moderate Assistance-helper does LESS THAN HALF the effort. [place] lifts, holds or supports trunk or limbs, but provides less than half the effort. 2-Substantial/Maximal Assistance-helper does MORE THAN HALF the effort. [place] lifts or holds trunk or limbs and provides more than half the effort. 8-Cfqanpcvv-gjrrbn does ALL the effort. Patient does none of the effort to complete the activity. Or, the assistance of 2 or more helpers is required for the patient to complete the activity. If activity was not attempted, code reason: 7-Patient Refused. 9-Not Applicable-not attempted and the patient did not perform the activity before the current illness, exacerbation or injury. 10-Not Attempted due to Environmental Limitations-(lack of equipment, weather restraints, etc.). 88-Not Attempted due to Medical Conditions or Safety Concerns. Sit to Stand (QC): 4 Chair/Fwp-us-Lomcp Xfer(QC): 4 SBA Weight Bearing Right Lower Extremity: Right Full Weight Bearing Left Lower Extremity: Left Weight Bearing/Tolerated Gait Training Distance: 200' Walk 10 feet (QC): 4 Walk 50 ft with 2 Turns(QC): 4 Walk 150 ft (QC): 4 Gait Persons Needed: 1 Gait Assistive Device: FWW SBA, slow, antalgic, has a fairly severe trendelenburg gait on the left side Stair Training Stair Training: Handrails/: 2 handrails #of Steps: 4 1 Step (curb) (QC): 4 4 Steps (QC): 4 Stairs: Pattern: Step to CGA, cues for foot placement Treatments transfers, ambulation, stair training Assessment Current Status: Fair Progress improving general mobility PT Call Center Associate Goals Call Center Associate Goals PT Call Center Associate Goals Time Frame: Jun 08, 2022 Roll Left & Right (QC): 6 Sit to Lying (QC): 6 Lying-Sitting on Side/Bed(QC): 6 Sit to Stand (QC): 6 Chair/Zid-yf-Dojmc Xfer(QC): 6 Toilet Transfer (QC): 6 Walk 10 feet (QC): 6 Walk 50ft with 2 Turns (QC): 6 Walk 150 ft (QC): 6 1 Step (curb) (QC): 6 4 Steps (QC): 6 PT Plan Problem List Problem List: Activity Tolerance, Functional Strength, Safety, Balance, Gait, Transfer, Bed Mobility, ROM Treatment/Plan Treatment Plan: Continue Plan of Care Treatment Plan: Bed Mobility, Education, Functional Activity Brien, Functional Strength, Gait, Safety, Therapeutic Exercise, Transfers Treatment Duration: Jun 08, 2022 Frequency: 11 times per week Estimated Hrs Per Day: .5 hour per day Patient and/or Family Agrees t: Yes Safety Risks/Education Patient Education: Gait Training, Transfer Techniques, Steps, Correct Positioning, Safety Issues Teaching Recipient: Patient Teaching Methods: Demonstration, Discussion Response to Teaching: Reinforcement Needed Time/GCodes Time In: 1324 Time Out: 1335 Total Billed Treatment Time: 11 Total Billed Treatment 1 visit FA SHARLENE CASTORENA PT Jun 05, 2022 14:10
[2022-06-05 15:50] VITALS: BP 122/57
[2022-06-05 19:22] VITALS: BP 118/56
[2022-06-05 23:31] VITALS: BP 122/72
[2022-06-06 03:34] VITALS: BP 124/73
[2022-06-06] MEDS: inSUlin ASPART (NovoLOG) 1 UNIT/0.01 ML (CHARGE PER UNIT) SC SCH ×2 (05:45→11:04)
[2022-06-06 07:34] VITALS: BP 145/63
[2022-06-06] MEDS ORDERED: OXC5T PO (08:15)
[2022-06-06] MEDS ORDERED: ASPI-1238 PO (08:15)
--- NOTE | 2022-06-06 08:19 | Discharge Summary ---
Discharge Summary Hospital Course Hospital Course Date of Admission: 06/03/22 Admission Diagnosis : Left Knee Primary Osteoarthritis Family Physician/Provider: Date of Discharge: 06/06/22 Discharge Diagnosis: [Left Knee Primary Osteoarthritis s/p Left Total Knee Arthroplasty ] Hospital Course: [ Admitted on 06/03/22 and went to the operating room for left TKA. Tolerated the procedure well and was transferred to the regular floor. On the day of surgery, she was started on mechnical DVT prophylaxis and began in room therapy. On POD #1, she began chemical DVT prophylaxis and made progress with ambulation. Pain was controlled with mostly oral medication. On POD #2, she was progressing well with therapy. Pain was controlled with oral medication and she was tolerating a regular diet. Home health therapy arrangements had been made. On POD #3, she was ready for discharge home with home health. ] Labs and Pending Lab Test: Laboratory Tests 06/05/22 15:12: Glucometer 219H 06/05/ 20:16: Glucometer 214H 06/06/22 05:28: Glucometer 159H Microbiology 06/03/22 MRSA Screen - Final, Complete MRSA not isolated Home Meds Active Aspirin EC (Aspirin) 81 Mg Tablet.dr 81 Mg PO BID WITH MEALS 14 Days Reported Magnesium Oxide 250 Mg Tablet 250 Mg PO BID Zestoretic 20-25 mg Tablet (Lisinopril/Hydrochlorothiazide) 20 Mg-25 Mg Tablet 1 Each PO DAILY Xalatan (Latanoprost) 0.005 % Drops 1 Drop OU HS Glimepiride 4 Mg Tablet 2 Mg PO TID TAKES OF A 4MG Omeprazole 20 Mg Capsule. 20 Mg PO DAILY Metformin HCl 850 Mg Tablet 850 Mg PO TIDPC Calcium 600+D Softgel (Calcium Carbonate/Vitamin D3) 600 Mg Calcium-5 Mcg (200 Unit) Capsule 1 Each PO DAILY B12 Active (Mecobalamin) 1,000 Mcg Tab.chew 1,000 Mcg PO DAILY Biotin 10,000 Mcg Capsule 10,000 Mcg PO DAILY Amlodipine Besylate 5 Mg Tablet 5 Mg PO DAILY Assessment/Pt Instructions Follow up in ~[address] Reilly. Continue to WBAT with walker. Dry dressing daily to incision site. Discharge Physical Examination Vital Signs Vital Signs Date Time Temp Pulse Resp B/P (MAP) Pulse Ox O2 Delivery O2 Flow Rate FiO2 06/06/22 07:34 36.6 80 18 145/63 (90) 96 Room Air 06/03/22 10:35 2.00 Extremity: Other (Left Knee: Incision C/D/I, +DF of ankle, no s/s of DVT) Allergies: Coded Allergies: Penicillins (Unverified Allergy, Severe, Hives, 05/30/22) codeine (Unverified Allergy, Severe, Hives; PT rec'd hydromorphone, 06/03/22) adhesive tape (Unverified Allergy, Intermediate, Rash, 05/30/22) caffeine (Unverified Allergy, Unknown, 05/30/22) iodine (Unverified Allergy, Unknown, 05/30/22) Discharge Summary Date of Admission Date of Discharge ROBERTO REILLY MD Jun 06, 2022 08:18
--- NOTE | 2022-06-06 08:20 | D/C HH Face to Face Order ---
D/C Face to Face Orders Instructions for Patient Via [facility] [place] [facility], Patient Instructions/FollowUp: Continue to WBAT with walker. Dry dressing daily to incision site. F/U in [address] Reilly Physician to follow Patient: Thad Reilly Discharge Diet for Home: ADA Diet Patient Data-Allergies,Ht & Wt Patient Allergies: Coded Allergies: Penicillins (Unverified Allergy, Severe, Hives, 05/30/22) codeine (Unverified Allergy, Severe, Hives; PT rec'd hydromorphone, 06/03/22) adhesive tape (Unverified Allergy, Intermediate, Rash, 05/30/22) caffeine (Unverified Allergy, Unknown, 05/30/22) iodine (Unverified Allergy, Unknown, 05/30/22) Home Health Need/Face to Face Date of Face to Face: Jun 06, 2022 Clinical Findings: Muscle weakness, Pain with ambulation, Unsteady gait I have seen Pt pvmz-qi-cxxq: Yes Discharged To: Home Diagnosis/Conditions: Left Knee Primary Osteoarthritis s/p L TKA Patient is Homebound due to: Muscle weakness, Pain w/ambulation Homebound Status Due to the above stated illness, injury or surgical procedure (medical condition or diagnosis) and associated clinical findings, the patient is homebound because of his/her inability to leave home except with aid of a supportive device and/or person AND leaving the home requires a considerable and taxing effort or is medically contraindicated. Pt req the following assistanc: Walker Home Health Nursing Orders Home Health Services Order: Physical Therapy-Evaluate & Treat Home Health Infusion Therapy Line Start Date: Jun 03, 2022 Therapy Orders Therapy Orders: Physical Therapy Therapy Specific Orders: Gait training, Increase strength/endurance, Restore ROM Certify Stmt I certify that this patient is under my care and that I, a nurse practitioner or a physician; a health care legal assistant working with me, had a face to face encounter that - meets the physician face to face encounter requirements with this patient as monique ed. THAD REILLY MD Jun 06, 2022 08:19
[2022-06-06] MEDS: ASPIRIN E.C. 81 MG (ECOTRIN) TAB PO SCH (09:04)
[2022-06-06] MEDS: PANTOPRAZOLE 20 MG TABLET (PROTONIX) PO SCH (09:04)
[2022-06-06] MEDS: GLIMEPIRIDE 2 MG (AMARYL) TAB PO SCH (09:04)
[2022-06-06] MEDS: DOCUSATE SODIUM 100 MG (COLACE) CAP PO SCH (09:04)
[2022-06-06] MEDS: CELECOXIB 100 MG (CeleBREX) CAP PO SCH (09:04)
--- NOTE | 2022-06-06 10:08 | Physical Therapy Daily Note ---
PT Daily Note-Current Subjective Patient report she slept better last night and will go home today. Pain Section J - Health Conditions 1. Rarely or not at all 2. Occasionally 3. Frequently 4. Almost constantly 8. Unable to answer Pain Effect on Sleep: 1 Pain Interference with Therapy: 1 Pain Interference w/Day-to-Day: 1 Transfers SCALE: Activities may be completed with or without assistive devices. 3-Qmkwzytctx-emwslbu completes the activity by him/herself with no assistance from a helper. 5-Set-up or Clean-up Assistance-helper sets up or cleans up; patient completes activity. [place] assists only prior to or following the activity. 4-Supervision or Touching Assistance-helper provides verbal cues and/or touching/steadying and/or contact guard assistance as patient completes activity. Assistance may be provided throughout the activity or intermittently. 3-Partial/Moderate Assistance-helper does LESS THAN HALF the effort. [place] lifts, holds or supports trunk or limbs, but provides less than half the effort. 2-Substantial/Maximal Assistance-helper does MORE THAN HALF the effort. [place] lifts or holds trunk or limbs and provides more than half the effort. 9-Mvfswccwd-psshxp does ALL the effort. Patient does none of the effort to complete the activity. Or, the assistance of 2 or more helpers is required for the patient to complete the activity. If activity was not attempted, code reason: 7-Patient Refused. 9-Not Applicable-not attempted and the patient did not perform the activity before the current illness, exacerbation or injury. 10-Not Attempted due to Environmental Limitations-(lack of equipment, weather restraints, etc.). 88-Not Attempted due to Medical Conditions or Safety Concerns. Sit to Stand (QC): 6 Weight Bearing Right Lower Extremity: Right Full Weight Bearing Left Lower Extremity: Left Weight Bearing/Tolerated Gait Training Distance: 250' Walk 10 feet (QC): 5 Walk 50 ft with 2 Turns(QC): 5 Walk 150 ft (QC): 5 Gait Assistive Device: FWW trunk and bilateral knee flexed posture Exercises Seated Therapy Exercises: Ankle pumps, Long arc quads Seated Reps: 15 Assessment Patient to dismiss to home with home health on this date. Patient progressing with treatment plan. PT Concrete Journeyman Goals Nursing Home Goals PT Nursing Home Goals Time Frame: Jun 08, 2022 Roll Left & Right (QC): 6 Sit to Lying (QC): 6 Lying-Sitting on Side/Bed(QC): 6 Sit to Stand (QC): 6 Chair/Tod-qu-Pxrwj Xfer(QC): 6 Toilet Transfer (QC): 6 Walk 10 feet (QC): 6 Walk 50ft with 2 Turns (QC): 6 Walk 150 ft (QC): 6 1 Step (curb) (QC): 6 4 Steps (QC): 6 PT Plan Treatment/Plan Treatment Plan: Discontinue PT Treatment Plan: Bed Mobility, Education, Functional Activity Brien, Functional Strength, Gait, Safety, Therapeutic Exercise, Transfers Treatment Duration: Jun 08, 2022 Frequency: 11 times per week Estimated Hrs Per Day: .5 hour per day Patient and/or Family Agrees t: Yes Time/GCodes Time In: 807 Time Out: 815 Total Billed Treatment Time: 8 Total Billed Treatment 1 visit FA 8 min ANDREAS EMERSON PT Jun 06, 2022 10:08
[2022-06-06 11:34] VITALS: BP 133/60
[2022-06-06 12:33] VITALS: BP 133/60
== END 2022-06-06 12:20 | disposition home or self-care (01) ==
LOC: SDC 05:56 → EDSTATUS 07:30 → 4TH 10:55 → SDC 06-06 12:20
PROVIDERS: ATTEND Orthopaedic Surgery
DX: M17.12 Unilateral primary osteoarthritis, left knee (principal); Z87.891 Personal history of nicotine dependence
CPT/HCPCS: 27447; 73560; 82947 ×3; 87081; 94664; 97110; 97116; 97162; 97165; 97530 ×3; 97799; C1713 ×2; C1776 ×3

== ENCOUNTER → 2022-07-23 | Outpatient (CLI) | payer MEDICARE ==
[~2022-07-23] MED LIST changes: +ASPI-1238 PO; +GLIM4TAB5 PO; +LATA2.5D19 OU; +LISI-593 PO; +MAGN250T35 PO; +OXC5T PO
--- NOTE | 2022-07-23 15:09 | Diagnostic Imaging Report ---
INDICATION: Right hip pain TECHNIQUE: 2 views of the right hip. CORRELATION STUDY: None FINDINGS: Images of the hip demonstrate no evidence for acute fracture. Alignment is anatomic. The femoral head acetabular relationship is unremarkable. The bony trabecular pattern is intact. IMPRESSION: 1. Negative for acute bony abnormality of the right hip. Dictated by: Dictated on workstation # [id number]
--- NOTE | 2022-07-23 20:33 | Diagnostic Imaging Report ---
INDICATION: PAIN TECHNIQUE: 2 views of the left knee CORRELATION STUDY: 06/03/2022 FINDINGS: Post knee arthroplasty hardware. Hardware intact. Alignment anatomic. No acute bony abnormality. Skin jaylen have been removed. Soft tissue edema and effusion present. IMPRESSION: 1. Satisfactory postoperative left knee arthroplasty. Some residual edema is present. Dictated by: Dictated on workstation # [id number]
== END ==
LOC: ORTHO 10:52
PROVIDERS: ATTEND Orthopaedic Surgery
DX: M25.562 Pain in left knee (principal); M25.552 Pain in left hip; Z96.652 Presence of left artificial knee joint
CPT/HCPCS: 73502; 73560

== ENCOUNTER → 2023-06-04 | Outpatient (CLI) | payer MEDICARE ==
--- NOTE | 2023-06-04 12:47 | Diagnostic Imaging Report ---
EXAMINATION: Left knee radiographs, 2 views. COMPARISON: September 22, 2021. HISTORY: 73-year-old female, left knee replacement. FINDINGS: There is a left constrained knee prosthesis. There is no identified patellar component. The hardware is intact. There is no periprosthetic lucency. There is no acute fracture. There is no knee joint effusion. IMPRESSION: Intact left knee prosthesis without identified complication. Dictated by: Dictated on workstation # [id number]
== END ==
LOC: ORTHO 09:44
PROVIDERS: ATTEND Orthopaedic Surgery
DX: Z96.652 Presence of left artificial knee joint (principal); I10 Essential (primary) hypertension; E11.9 Type 2 diabetes mellitus without complications
CPT/HCPCS: 73560; G0463; 99213